=== PATIENT | female | born 1970 | race Caucasian/White ===

== ENCOUNTER 2024-07-19 21:50 | Emergency (ER) | payer OTHER ==
[~2024-07-19] VITALS: Ht 175.3 cm; Wt 74.8 kg
[2024-07-20 00:45] VITALS: BP 151/87
[2024-07-20] MEDS ORDERED: ONDA4ODT MM (00:58)
[2024-07-20] MEDS ORDERED: RX Prepack 2 Tabs Ondansetron ODT 4MG UD ONE (01:00)
== END 2024-07-20 01:14 | disposition home or self-care (01) ==
LOC: ER 21:50
DX: A08.4 Viral intestinal infection, unspecified (principal)
CPT/HCPCS: 99283; A9270